=== PATIENT | female | born 1995 | race Two or more races ===

== ENCOUNTER 2023-06-14 09:02 | Outpatient (CLI) | payer OTHER ==
[~2023-06-14] VITALS: Ht 157.5 cm; Wt 48.1 kg
[~2023-06-14 09:02] MED LIST: PRENATAL TABLE1 EAC1 PO
[2023-06-14] MEDS ORDERED: CEFADROXIL500 MG PO (16:55)
== END 2023-06-14 17:34 | disposition home or self-care (01) ==
LOC: LDR 09:02 → OBS/DEL 09:02 → LDR 17:34 → OBS/DEL 17:34
PROVIDERS: ATTEND Specialist
DX: O47.02 False labor before 37 completed weeks of gestation, second trimester (principal); O23.32 Infections of other parts of urinary tract in pregnancy, second trimester; N39.0 Urinary tract infection, site not specified; R10.2 Pelvic and perineal pain; Z20.822 Contact with and (suspected) exposure to COVID-19; Z3A.25 25 weeks gestation of pregnancy

== ENCOUNTER 2023-06-15 16:50 | Outpatient (CLI) | payer OTHER ==
[~2023-06-15 16:50] MED LIST changes: +CEFADROXIL500 MG PO
== END 2023-06-16 14:47 | disposition home or self-care (01) ==
LOC: OBS/DEL 16:50
PROVIDERS: ATTEND Specialist
DX: O23.32 Infections of other parts of urinary tract in pregnancy, second trimester (principal); O47.02 False labor before 37 completed weeks of gestation, second trimester; N39.0 Urinary tract infection, site not specified; Z3A.25 25 weeks gestation of pregnancy

== ENCOUNTER 2023-08-28 16:33 | Inpatient (IN) | payer OTHER ==
[~2023-08-28] VITALS: Ht 157.5 cm; Wt 2.3 kg
[2023-08-28 17:57] LABS: HEMATOCRIT 35.4 % (36.0-45.00); HEMOGLOBIN 11.8 g/dL (12.0-15.00); MEAN CELL VOLUME 89.6 fL (80.00-100.00); MEAN CORPUSCULAR HEMOGLOBIN 29.7 pg (27.00-32.0); MEAN CORPUSCULAR HGB CONC 33.2 g/dl (32.0-36.0); PLATELET COUNT 171 K/uL (150-450); RED BLOOD COUNT 3.96 M/uL (4.00-6.00); RED CELL DISTRIBUTION WIDTH 13.3 % (11.5-14.5)
[2023-08-28 17:58] LABS: PH,URINE 6.5 (5.0-8.0); URINE APPEARANCE Clear; URINE BILIRRUBIN Negative (NEGATIVE); URINE BLOOD Small; URINE COLOR Yellow; URINE GLUCOSE Negative (NEGATIVE); URINE LEUKOCYTE Large; URINE NITRATE Negative; URINE PROTEIN Negative (NEGATIVE)
[2023-08-28 18:00] LABS: URINE BACTERIA 816.4 uL (0.0-1933); URINE EPITHELIAL CELLS 17.3 uL (0.0-38.8); URINE RBC 2.4 uL (0.0-20.8); URINE WBC 96.3 uL (0.0-23.2)
[2023-08-28 18:19] LABS: INR 0.99; PROTHROMBIN TIME 10.4 SECONDS (9.0-11.5)
[2023-08-28 18:25] LABS: ALBUMIN 2.6 gm/dL (3.4-5.0); BILIRUBIN TOTAL 0.44 mg/dL (0.3-1.2); CALCIUM 8.3 mg/dL (8.5-10.1); CREATININE SERUM 0.52 mg/dL (0.55-1.02); GFR 143.68; GLOBULINA 3.1 G/DL (2.4-3.5); POTASSIUM 3.23 mEq/L (3.5-5.1); TOTAL PROTEIN 5.7 gm/dL (6.4-8.2)
[2023-08-29 01:51] LABS: ABG PH 7.269 (7.35-7.45); ABG pCO2 51.6 mmHg (35-45)
[2023-08-29 01:52] LABS: ABG PO2 25.6 mmHg (80-100); BASE EXCESS -4.3 mmol/l; BICARBONATE 23.1 mmol/l (23-25); SaO2 36.1 %; Tco2 24.7 mmol/l; o2 21 %
[2023-08-29 04:42] LABS: HEMATOCRIT 34.7 % (36.0-45.00); MEAN CELL VOLUME 88.1 fL (80.00-100.00); MEAN CORPUSCULAR HEMOGLOBIN 30.5 pg (27.00-32.0); MEAN CORPUSCULAR HGB CONC 34.7 g/dl (32.0-36.0); RED BLOOD COUNT 3.94 M/uL (4.00-6.00); RED CELL DISTRIBUTION WIDTH 13.4 % (11.5-14.5)
[2023-08-29 04:43] LABS: PLATELET COUNT 166 K/uL (150-450)
[2023-08-31] MEDS ORDERED: IBU800 MG PO (08:45)
[2023-08-31] MEDS ORDERED: SURFAK240 M1 PO (08:45)
== END 2023-08-31 10:50 | disposition home or self-care (01) | DRG 786 ==
LOC: LDR 16:33 → OB/GYN 16:33 → O/R 20:46 → OB/GYN 22:58
PROVIDERS: ADMIT Specialist; ATTEND Specialist
PROC: 4A1HXCZ Monitoring of Products of Conception, Cardiac Rate, External Approach (ICD-10-PCS; 2023-08-28)
PROC: 10D00Z1 Extraction of Products of Conception, Low, Open Approach (ICD-10-PCS; principal; 2023-08-28 20:00)
DX: O32.1XX0 Maternal care for breech presentation, not applicable or unspecified (principal); O60.14X0 Preterm labor third trimester with preterm delivery third trimester, not applicable or unspecified; Z3A.36 36 weeks gestation of pregnancy; Z37.0 Single live birth; Z20.822 Contact with and (suspected) exposure to COVID-19